=== PATIENT | female | born 1965 | race Caucasian/White ===

== ENCOUNTER → 2016-10-24 | Outpatient (CLI) | payer BC ==
[~2016-10-24] MED LIST: AMOXICILLIN 50500 MG PO; ATIVAN 0.50.5 MG/TAB PO; COLACE 100100 MG/CAP PO; ESTRACE 1MG1 MG/TAB PO; IRON324 M1 PO; MOTRIN 600600 MG/TAB PO; MYLICON; NO HOME MEDICATIONS; NYSTATIN CREAM15 GM; PERCOCET 325 MG1 TA2 PO; PHENERGAN W/CO120 M1 PO; PRIL40 PO; PRILOSEC 20MG20 MG PO; SENOKOTXTRA17.2 MG; TYLENOL 325MG325 MG PO; ZANTAC 150MG T150 MG PO
== END ==
LOC: MC.RAD 14:16
DX: Z12.31 Encounter for screening mammogram for malignant neoplasm of breast (principal)

== ENCOUNTER → 2017-12-10 | Outpatient (CLI) | payer BC | LOC: MC.RAD 11:40 | DX: Z12.31 Encounter for screening mammogram for malignant neoplasm of breast (principal) ==

== ENCOUNTER → 2019-01-07 | Outpatient (CLI) | payer BC | LOC: MC.RAD 09:30 | DX: N63.10 Unspecified lump in the right breast, unspecified quadrant (principal) | CPT/HCPCS: G0279 ==

== ENCOUNTER → 2021-05-24 | Outpatient (CLI) | payer BC | LOC: MC.RAD 13:00 | DX: Z12.31 Encounter for screening mammogram for malignant neoplasm of breast (principal) ==

== ENCOUNTER → 2023-10-02 | Outpatient (CLI) | payer OTHER | LOC: MC.RAD 07:43 | DX: Z12.31 Encounter for screening mammogram for malignant neoplasm of breast (principal) ==